=== PATIENT | female | born 1975 | race Caucasian/White ===

== ENCOUNTER → 2024-05-15 18:12 | Outpatient (REF) | payer OTHER, SELFPAY | LOC: WDC 18:12 | PROVIDERS: ATTENDING PHYSICIAN Nurse Practitioner Family; FAMILY PHYSICIAN Nurse Practitioner Family | DX: Z12.31 Encounter for screening mammogram for malignant neoplasm of breast (principal) | CPT/HCPCS: 77063; 77067 ==